=== PATIENT | female | born 1985 | race Caucasian/White ===

== ENCOUNTER 2018-02-19 08:38 | Outpatient (CLI) | payer BC ==
[2018-02-19 10:22] LABS: BASOPHILS % (AUTO) 0.4 %; EOSINOPHILS # (AUTO) 0.1 10^3/uL (0.0-0.7); EOSINOPHILS % (AUTO) 1.1 %; HGB - HEMOGLOBIN 14.1 g/dL (12.0-16.0); LYMPHOCYTES # (AUTO) 3.3 10^3/uL (1.5-3.5); LYMPHOCYTES % (AUTO) 33.8 %; MEAN CORPUSCULAR HEMOGLOBIN 31.3 pg (27.0-31.0); MEAN CORPUSCULAR HGB CONC 35.6 g/dL (32.0-36.0); MEAN CORPUSCULAR VOLUME 87.9 fL (81.0-99.0); MEAN PLATELET VOLUME 8.4 fL (7.9-10.8); MONOCYTES # (AUTO) 0.6 10^3/uL (0.0-1.0); MONOCYTES % (AUTO) 6.1 %; NEUTROPHILS # (AUTO) 5.7 10^3/uL (1.5-6.6); NEUTROPHILS % (AUTO) 58.6 %; PLT - PLATELET COUNT 226 10^3/uL (130-450); RED CELL DISTRIBUTION WIDTH 12.5 % (12.0-15.0); WHITE BLOOD COUNT 9.8 x10^3/uL (4.8-10.8)
[2018-02-19 10:53] LABS: HB2 TOTAL 15.2 g/dL; HEMOGLOBIN A1C 0.41 g/dL; HEMOGLOBIN A1C % 4.6 % (4.6-6.2)
[2018-02-19 10:59] LABS: % IRON SATURATION 22 % (20-50); ALBUMIN 3.9 g/dL (3.2-5.5); ALBUMIN/GLOBULIN RATIO 1.3 (1.0-2.2); ALKALINE PHOSPHATASE 63 IU/L (42-121); ALT ALANINE AMINOTRANSFERASE 34 IU/L (10-60); AST ASPARTATE AMINOTRANSFERASE 24 IU/L (10-42); BILIRUBIN,TOTAL 0.7 mg/dL (0.2-1.0); BUN - BLOOD UREA NITROGEN 8 mg/dL (6-20); CALCIUM 8.6 mg/dL (8.5-10.3); CARBON DIOXIDE - CO2 23 mmol/L (21-32); CHLORIDE 104 mmol/L (101-111); CHOL/HDL RATIO 3.6 (<4.4); CHOLESTEROL 118 mg/dL; CREATININE 0.7 mg/dL (0.4-1.0); GFR - MDRD 97 (>89); GLUCOSE 102 mg/dL (70-100); HDL CHOLESTEROL 33 mg/dL; IRON 68 ug/dL (28-170); LDL CHOLESTEROL,CALCULATED 59 mg/dL; LDL/HDL RATIO 1.8 (<4.4); SODIUM 135 mmol/L (135-145); TOTAL IRON BINDING CAPACITY 304 ug/dL (250-450); TOTAL PROTEIN 6.8 g/dL (6.7-8.2); TRANSFERRIN 217 mg/dL (192-382); VLDL CHOLESTEROL 26 mg/dL
[2018-02-19 11:05] LABS: THYROID STIMULATING HORMONE 2.01 uIU/mL (0.34-5.60)
[2018-02-19 11:06] LABS: FREE T4 (FREE THYROXINE) 0.84 ng/dL (0.58-1.64)
[2018-02-19 11:11] LABS: CRP - C-REACTIVE PROTEIN < 1.0 mg/dL (0-1.0)
[2018-02-26 21:05] LABS: ENDOMYSIAL ANTIBODY SCR IGA NEGATIVE (NEGATIVE); GLIADIN (DEAMIDATED) AB IGA 3 U (<20); GLIADIN (DEAMIDATED) AB IGG 9 U (<20); IMMUNOGLOBULIN A 100 mg/dL (81-463); TISSUE TRANSGLUTAMINASE IGA <1 U/mL; TISSUE TRANSGLUTAMINASE IGG 2 U/mL
== END 2018-02-19 08:39 | disposition home or self-care (01) ==
LOC: LAB.F 08:38
PROVIDERS: ATTEND Internal Medicine
DX: R53.83 Other fatigue (principal); R10.9 Unspecified abdominal pain; R19.7 Diarrhea, unspecified; R63.5 Abnormal weight gain
CPT/HCPCS: 36415; 80053; 80061; 81599; 82784; 83036; 83516; 83540; 83721; 84439; 84443; 84466; 84481; 85025; 86140; 86256; 86376

== ENCOUNTER 2018-03-24 17:51 | Outpatient (CLI) | payer BC ==
--- NOTE | 2018-03-25 09:49 | Ultrasound Report ---
Reason: ENCTR FOR TEST, RESULT POSITIVE Procedure Date: 03/24/2018 Accession Number: [id number] / [id number] Procedure: US - OB First Trimester CPT Code: FULL RESULT: EXAM: FIRST TRIMESTER OBSTETRIC ULTRASOUND (Less than 11 weeks) EXAM DATE: 03/24/2018 06:52 PM. CLINICAL HISTORY: 32-year-old female with positive test. LMP: 01/06/2018. COMPARISONS: None. TECHNIQUE: Transabdominal and transvaginal ultrasound examination with static image documentation. CLINICAL DATES: EGA 11 weeks 0 days with PARISH 10/13/2018 based on LMP. ASSESSMENT: Gestational Sac: Single intrauterine. Mean gestational sac diameter: 39 mm = 9 weeks 4 days. Embryo: CRL (crown-rump length) 42.6 mm = 11 weeks 1 day. Cardiac activity: 163 beats per minute. Yolk sac: 3.9 mm. Amniotic fluid: Unremarkable for stage of . Early placenta: Not visible at this gestational age. Other: No perigestational fluid collection demonstrated. MATERNAL STRUCTURES: Uterus: Anteverted/Retroverted. Unremarkable. Cervix: Closed. Right Ovary/Adnexa: Not visualized. Likely obscured by the enlarged uterus. No adnexal mass, cyst or free fluid.. Left Ovary/Adnexa: The ovary measures 3.1 x 1.8 x 3.6 cm, volume 10.5 cc. Unremarkable. Benign-appearing corpus luteum 1.9 cm. Free Fluid: None. Other: None. IMPRESSION: Single living intrauterine fetus in well-formed gestational sac 11 weeks 1 day by crown-rump length, within 1 day of clinical dates by LMP of 11 weeks 0 days. Right ovary not identified, likely obscured by bowel gas. No adnexal mass, cyst or free fluid. Normal-appearing left ovary. Complete anatomic survey recommended at 20 weeks. RADIA
== END 2018-03-24 17:52 | disposition home or self-care (01) ==
LOC: DI 17:51
PROVIDERS: ATTEND Obstetrics & Gynecology
DX: Z32.01 Encounter for pregnancy test, result positive (principal)
CPT/HCPCS: 76801; 76817

== ENCOUNTER 2018-03-25 14:10 | Outpatient (CLI) | payer BC ==
[2018-03-25 15:16] LABS: MUDS CUTOFF CONCENTRATIONS CUTOFF CONC BELOW:
[2018-03-25 15:31] LABS: AMPHETAMINE SCREEN,URINE NEGATIVE (NEGATIVE); BENZODIAZEPINES SCREEN, URINE NEGATIVE (NEGATIVE); COCAINE SCREEN URINE NEGATIVE (NEGATIVE); METHADONE SCREEN, URINE NEGATIVE (NEGATIVE); METHAMPHETAMINES SCREEN, URINE NEGATIVE (NEGATIVE); OPIATE SCREEN, URINE NEGATIVE (NEGATIVE); OXYCODONE SCREEN, URINE NEGATIVE (NEGATIVE); PROPOXYPHENE SCREEN, URINE NEGATIVE (NEGATIVE); TRICYCLIC ANTIDEPRESSANT,URINE NEGATIVE (NEGATIVE)
== END 2018-03-25 14:11 | disposition home or self-care (01) ==
LOC: LAB.R 14:10
PROVIDERS: ATTEND Registered Nurse
DX: Z36.9 Encounter for antenatal screening, unspecified (principal)
CPT/HCPCS: 80306

== ENCOUNTER 2018-05-21 08:55 | Outpatient (CLI) | payer BC | END 2018-05-21 08:56 | disposition home or self-care (01) | LOC: LAB.F 08:55 | PROVIDERS: ATTEND Registered Nurse | DX: Z36.9 Encounter for antenatal screening, unspecified (principal) ==

== ENCOUNTER 2018-05-22 08:55 | Outpatient (CLI) | payer BC ==
[2018-05-22 09:29] LABS: BASOPHILS % (AUTO) 0.2 %; EOSINOPHILS # (AUTO) 0.1 10^3/uL (0.0-0.7); EOSINOPHILS % (AUTO) 0.9 %; HGB - HEMOGLOBIN 12.8 g/dL (12.0-16.0); LYMPHOCYTES # (AUTO) 3.3 10^3/uL (1.5-3.5); LYMPHOCYTES % (AUTO) 20.5 %; MEAN CORPUSCULAR HEMOGLOBIN 31.1 pg (27.0-31.0); MEAN CORPUSCULAR HGB CONC 35.4 g/dL (32.0-36.0); MEAN CORPUSCULAR VOLUME 87.8 fL (81.0-99.0); MONOCYTES # (AUTO) 0.9 10^3/uL (0.0-1.0); MONOCYTES % (AUTO) 5.7 %; NEUTROPHILS # (AUTO) 11.5 10^3/uL (1.5-6.6); NEUTROPHILS % (AUTO) 72.7 %; PLT - PLATELET COUNT 194 10^3/uL (130-450); RED BLOOD COUNT 4.13 10^6/uL (4.20-5.40); RED CELL DISTRIBUTION WIDTH 12.8 % (12.0-15.0); WHITE BLOOD COUNT 15.9 x10^3/uL (4.8-10.8)
[2018-05-22 09:46] LABS: BILIRUBIN,URINE NEGATIVE (NEGATIVE); GLUCOSE, URINE (UA) 500 mg/dL (NEGATIVE); KETONES,URINE (UA) 15 mg/dL (NEGATIVE); LEUKOCYTE ESTERASE, URINE NEGATIVE (NEGATIVE); NITRITE,URINE NEGATIVE (NEGATIVE); OCCULT BLOOD,URINE NEGATIVE (NEGATIVE); PH,URINE 5.5 PH (5.0-7.5); PROTEIN,URINE NEGATIVE (NEGATIVE); UROBILINOGEN,URINE 0.2 (NORMAL) E.U./dL (NORMAL)
[2018-05-22 09:53] LABS: CLARITY,URINE CLEAR (CLEAR)
[2018-05-22 09:56] LABS: BACTERIA,URINE Few /HPF (None Seen); RBC,URINE 0-5 /HPF (0-5); SQUAMOUS EPITHELIAL CELL,UR FEW Squamous (<= Few)
[2018-05-22 10:31] LABS: HB2 TOTAL 13.5 g/dL; HEMOGLOBIN A1C 0.4 g/dL; HEMOGLOBIN A1C % 4.9 % (4.6-6.2)
[2018-05-23 10:56] LABS: HEPATITIS B SURFACE ANTIGEN NON-REACTIVE (NON-REACTIVE); HEPATITIS C ANTIBODY NON-REACTIVE (NON-REACTIVE)
[2018-05-25 09:11] LABS: HIV AG/AB 4TH GEN NON-REACTIVE (NON-REACTIVE)
== END 2018-05-22 08:56 | disposition home or self-care (01) ==
LOC: LAB 08:55
PROVIDERS: ATTEND Registered Nurse
DX: Z36.9 Encounter for antenatal screening, unspecified (principal)
CPT/HCPCS: 36415; 81001; 81599; 82950; 83036; 85025; 86592; 86762; 86803; 86850; 86900; 86901; 87340; 87389

== ENCOUNTER 2018-06-11 12:53 | Outpatient (CLI) | payer BC ==
--- NOTE | 2018-06-11 16:48 | Ultrasound Report ---
Reason: Procedure Date: 06/11/2018 Accession Number: [id number] / [id number] Procedure: US - OB Detailed Eval CPT Code: FULL RESULT: EXAM: COMPLETE OBSTETRICAL ULTRASOUND EXAM DATE: 06/11/2018 03:18 PM. CLINICAL HISTORY: anatomic survey. COMPARISON: OB FIRST TRIMESTER 03/24/2018 6:10 PM. TECHNIQUE: Real-time sonographic evaluation of the fetus performed by the pie filling mixer. Multiple telephone sales representative static images were saved for review. DATING: Established EGA 22 weeks 0 days with PARISH 10/14/2018 based on physician stated. EGA 22 weeks 3 days with PARISH 10/12/2018 based on prior ultrasound. EGA 22 weeks 4 days with PARISH 10/11/2018 based on the current ultrasound. GENERAL EVALUATION Thomas . Cardiac activity: 152 bpm. movement: Visualized. Presentation: Cephalic. Placenta: Posterior position. No evidence for previa. Umbilical cord: 3 vessel cord. Central placental cord origin. Amniotic fluid: Subjectively normal with a four-quadrant LARS of 16.6 cm.. MVP 4.7 cm. BIOMETRY Bi-Parietal Diameter (BPD): 5.62 cm, 23 weeks 1 day Head Circumference (HC): 20.6 cm, 22 weeks 4 days Abdominal Circumference (AC): 17.9 cm, 22 weeks 5 days Femur Length (FL): 3.85 cm, 22 weeks 2 days Estimated Weight: 519 grams, appropriate for his estimated gestational age. ANATOMY The intracranial structures, profile, face/nose/lips, spine, 4 chamber heart and outflow tracts, stomach, abdominal wall and cord insertion, diaphragm, kidneys, bladder, and extremities were visualized and demonstrate no abnormality. MATERNAL STRUCTURES Uterus: Unremarkable. Cervix: Long and closed. Transabdominal length 4.5 cm. Right ovary/adnexa: Unremarkable. Left ovary/adnexa: Unremarkable. Free fluid: None. IMPRESSION: 1. Thomas live intrauterine with gestational age 22 weeks 0 days based on physician stated. 2. Estimated weight is within expected limits for assigned dating. 3. Normal anatomic survey. No anatomic abnormalities are detected at this time. RADIA
== END 2018-06-11 12:54 | disposition home or self-care (01) ==
LOC: DI 12:53
PROVIDERS: ATTEND Registered Nurse
DX: Z33.1 Pregnant state, incidental (principal)
CPT/HCPCS: 76811

== ENCOUNTER 2018-07-20 08:11 | Outpatient (CLI) | payer BC ==
[2018-07-20 08:47] LABS: HGB - HEMOGLOBIN 12.6 g/dL (12.0-16.0); MEAN CORPUSCULAR HEMOGLOBIN 30.5 pg (27.0-31.0); MEAN CORPUSCULAR VOLUME 87.1 fL (81.0-99.0); MEAN PLATELET VOLUME 8.1 fL (7.9-10.8); RED BLOOD COUNT 4.13 10^6/uL (4.20-5.40); RED CELL DISTRIBUTION WIDTH 13.6 % (12.0-15.0); WHITE BLOOD COUNT 14.6 x10^3/uL (4.8-10.8)
== END 2018-07-20 08:12 | disposition home or self-care (01) ==
LOC: LAB 08:11
PROVIDERS: ATTEND Nurse Practitioner Obstetrics & Gynecology
DX: Z36.89 Encounter for other specified antenatal screening (principal)
CPT/HCPCS: 36415; 82951; 82952; 85027; 86850

== ENCOUNTER 2018-09-25 14:28 | Outpatient (CLI) | payer BC | END 2018-09-25 23:59 | disposition home or self-care (01) | LOC: LAB.R 14:28 | PROVIDERS: ATTEND Nurse Practitioner Obstetrics & Gynecology | DX: Z36.89 Encounter for other specified antenatal screening (principal) | CPT/HCPCS: 87491; 87591; 87797 ==

== ENCOUNTER 2018-10-13 11:01 | Inpatient (IN) | payer BC ==
[2018-10-13] MEDS ORDERED: SODIUM CHLORIDE FLUSH 0.9% 10 ML SYRINGE IVP PRN (11:14)
[2018-10-13] MEDS ORDERED: ONDANSETRON 4 MG/2 ML VIAL IVP PRN (11:14)
[2018-10-13] MEDS ORDERED: SODIUM CHLORIDE FLUSH 0.9% 10 ML SYRINGE ONE (11:20)
[2018-10-13] MEDS ORDERED: LACTATED RINGERS 1,000 ML IV ONE (11:21)
[2018-10-13 11:50] LABS: BASOPHILS # (AUTO) 0.1 10^3/uL (0.0-0.1); BASOPHILS % (AUTO) 0.4 %; EOSINOPHILS % (AUTO) 0.2 %; HGB - HEMOGLOBIN 13.9 g/dL (12.0-16.0); LYMPHOCYTES # (AUTO) 3.3 10^3/uL (1.5-3.5); LYMPHOCYTES % (AUTO) 21.3 %; MEAN CORPUSCULAR HEMOGLOBIN 29.1 pg (27.0-31.0); MEAN CORPUSCULAR VOLUME 85.5 fL (81.0-99.0); MEAN PLATELET VOLUME 9.3 fL (7.9-10.8); MONOCYTES # (AUTO) 0.9 10^3/uL (0.0-1.0); MONOCYTES % (AUTO) 5.6 %; NEUTROPHILS # (AUTO) 11.1 10^3/uL (1.5-6.6); NEUTROPHILS % (AUTO) 72.5 %; PLT - PLATELET COUNT 186 10^3/uL (130-450); RED BLOOD COUNT 4.79 10^6/uL (4.20-5.40); RED CELL DISTRIBUTION WIDTH 13.7 % (12.0-15.0); WHITE BLOOD COUNT 15.4 x10^3/uL (4.8-10.8)
[2018-10-13] MEDS ORDERED: LACTATED RINGERS 1,000 ML IV SCH (12:00)
[2018-10-13] MEDS ORDERED: fentaNYL 100 MCG/2 ML VIAL ONE (12:00)
--- NOTE | 2018-10-13 12:05 | ANESTHESIA ---
Pre-Anesthesia VS, & Labs - Diagnosis Active labor - Procedure vaginal delivery Vital Signs: Temp Pulse Resp BP Pulse Ox 36.6 C 77 16 119/55 L 10/13/18 11:05 10/13/18 11:05 10/13/18 11:05 10/13/18 11:05 - NPO Other (labor) - Is Patient ?: Yes - Lab Results Current Lab Results: Laboratory Tests 10/13/18 11:30: WBC 15.4 H, RBC 4.79, Hgb 13.9, Hct 40.9, MCV 85.5, MCH 29.1, M CHC 34.0, RDW 13.7, Plt Count 186, MPV 9.3, Neut # (Auto) 11.1 H, Lymph # (Auto) 3.3, [place] # (Auto) 0.9, Eos # (Auto) 0.0, Baso # (Auto) 0.1, Absolute Nucleated RBC 0.01, Nucleated RBC % 0.0 Fish Bones: 10/13/18 11:30 Home Medications and Allergies Active Medications Lactated Ringer's (Lr) 1,000 mls @ 150 mls/hr IV .Q6H40M [facility] Last Admin: 10/13/18 11:32 Dose: 150 mls/hr Ondansetron HCl (Zofran Inj) 4 mg IVP Q4H PRN PRN Reason: Nausea / Vomiting Sodium Chloride (Normal Saline Flush 0.9%) 10 ml IVP PRN PRN PRN Reason: NEEDED PER PROVIDER ORDERS Sodium Chloride (Normal Saline Flush 0.9%) 10 ml IVP 0100,0900,1700 [facility] Zoloft daily Allergies/Adverse Reactions: Allergies Allergy/AdvReac Type Severity Reaction Status Date / Time azithromycin Allergy Rash Verified 10/13/18 12:04 Anes History & Medical History - Anesthetic History Anesthesia Complications: reports: No previous complications - Medical History Cardiovascular: reports: None Pulmonary: reports: None Gastrointestinal: reports: None Urinary: reports: None Neuro: reports: None Musculoskeletal: reports: None Endocrine/Autoimmune: reports: None Blood Disorders: reports: None Skin: reports: None Smoking Status: Never smoker Psychosocial: reports: Depression - Obstetrical History : 2 Parity: 1 Exam General: Alert, Oriented x3, Cooperative, No acute distress Dental: WNL Mouth Openin Fingerbreadth Neck Mobility: Normal Mallampati classification: II Thyromental Distance: 4-6 cm Plan Anesthesia Type: Spinal Consent for Procedure(s) Verified and Reviewed: Yes Code Status: Attempt Resuscitation ASA classification: 2-Mild systemic disease Is this case an emergency?: No
[2018-10-13] MEDS: OXYTOCIN/SODIUM CHLORIDE 500 ML IV PRN ×2 (12:15→13:16)
[2018-10-13] MEDS ORDERED: OXYTOCIN/SODIUM CHLORIDE 500 ML IV ONE (12:21)
[2018-10-13] MEDS ORDERED: WITCH HAZEL/GLYCERIN 1 EACH MED..PAD TOP PRN (12:37)
[2018-10-13] MEDS ORDERED: HYDROCORTISONE 1% CREAM 28 GM TUBE PR PRN (12:37)
--- NOTE | 2018-10-13 12:41 | HISTORY & PHYSICAL EXAMINATION ---
Admit History - Visit Reason Visit Reason: Contractions - : 2 Parity: 1 Premature: 0 Ectopic: 0 : 0 Care: positive: [facility] Risk/History: positive: None Complications This : positive: None Smoking Status: Never smoker - Mother's Labs Mother's Blood Type: positive: AB Mother's RH: positive: Positive GBS: positive: Group B Step Negative Rubella Status: positive: Immune Meds/Allgy - Allergies Allergies/Adverse Reactions: Allergies Allergy/AdvReac Type Severity Reaction Status Date / Time azithromycin Allergy Rash Verified 10/13/18 12:04 Review of Systems - Constitutional Constitutional: denies: Fatigue, Fever, Chills - Eyes Eyes: denies: Pain, Blurred vision, Spots in vision, Dipolpia - Cardiovascular Cariovascular: denies: Irregular heart rate, Palpitations, Chest pain, Edema - Respiratory Respiratory: denies: SOB at rest - Gastrointestinal Gastrointestinal: denies: Constipation, Diarrhea - Genitourinary Genitourinary: denies: Dysuria, Frequency, Urgency - Integumentary Integumentary: denies: Pruritis - Psychiatric Psychiatric: reports: Depression, Anxiety Physical - Abdominal Exam Vital Signs: Temp Pulse Resp BP Pulse Ox 36.6 C 77 16 119/55 L 10/13/18 11:05 10/13/18 11:05 10/13/18 11:05 10/13/18 11:05 Contraction Frequency (min/apart): 2-3 Contraction Intensity: positive: Strong Uterine Resting Tone: positive: Soft - Monitoring Heart Rate Baseline: 140 Strip Review: positive: Category II - Presentation Presentation: positive: Vertex - Vaginal Exam Membranes: positive: Membranes intact Plan for Labor - Plan For Labor I expect patient to be DC'd or transferred within 96 hours.: Yes Plan for Labor: HPI: This 33yo @ 39.6wks gestation by LMP presented to [facility] with c/o contractions. Upon arrival she was noted to be 5/6cm dilated, 80% effaced and 0 station. She reports contractions which have become persistently more uncomfortable with onset at 0200 this morning. She reports +FM. She denies VB or Lof. She has had a complicated only by anxiety and depression for which she was started on sertraline with improvement. She was admitted to [facility] for expectant management and requested an epidural for pain management. LMP 01/06/2018 First ultrasound @ 9w4d agrees with LMP dating PMHx: Anxiety/depression, obesity PSHx: Oral surgery Social Hx: Never smoker, no ETOH or IVDA Family Hx: Diabetes- mother, maternal grandfather Assessment: 33yo @ 39.6wks gestation by LMP Active labor GBS negative Anxiety Plan: Admit for expectant management Continuous monitoring Epidural per maternal request Anticipate spontaneous vaginal delivery
--- NOTE | 2018-10-13 12:55 | DELIVERY NOTE ---
Delivery Note - Labor Labor: positive: Spontaneous - Delivery Method Delivery Method: positive: Spontaneous vaginal delivery - Presentation Presentation: positive: ROP - right occiput posterior - Nuchal Cord Nuchal Cord: positive: None - Episiotomy Type Episiotomy Type: positive: None - Laceration Laceration: positive: 1st degree, Labial - Suture Suture Type: positive: Vicryl Suture Size: positive: 4-0 - Delivery Outcome Delivery Outcome: positive: Livebirth - [place] : positive: Placed in direct skin contact with mother, Stimulated, Warmed, [employer] used [place] sex: positive: Male - Cord Cord: positive: 3 vessels - Placenta Placenta: positive: Intact, Spontaneous - Estimated Blood Loss Estimated Blood Loss (in cc): 200 - Post Delivery Events Post Delivery Events: positive: No post delivery events - Delivery Comments (Free Text/Narrative) Delivery Comments (Free Text/Narrative): Labor: This 33yo @ 39.6wks gestation by L=9.4wk U/S presented at 1030 on 10/13/2018 in active labor. Cervix was 5-6/80/0, vertex with intact membranes. FHR pattern demonstrated baseline 140s in a category II pattern which was ove rall reassuring. Normal labor course. Spinal epidural placed per maternal request. Patient progressed to c/c/+2 at 1200 and actively began pushing at 1204. SROM occurred at 1205 and was noted to be a small amount of clear fluid. Normal SVB of a viable male infant in ROP position at 1211 on 10/13/2018. No nuchal cord. Apgars were 9/9 at 1 and 5 min respectively. The was placed on maternal abdomen, stimulated, dried, and placed skin to skin. The umbilical cord was allowed to stop pulsating at which time it was doubly clamped by CNM and cut by FOB. Cord blood was obtained. Placenta delivered spontaneously and intact at 1215. 3VC. Pitocin administered via IV for hemostasis. EBL 200mL. Uterine fundus firm and there is no excessive bleeding. The perineum, vagina, and cervix were inspected and found to have first degree right labial laceration which was repaired using 4-0 vicryl on an SH needle in standard fashion under sterile conditions. Vaginal examination following repair was done and tissues well approximated. Family bonding well. Both mother and baby were left in skin to skin position and in stable condition.
[2018-10-13] MEDS: ACETAMINOPHEN 500 MG TABLET PO SCH ×2 (15:44→23:44)
[2018-10-13] MEDS: IBUPROFEN 800 MG TABLET PO SCH ×2 (15:45→21:54)
[2018-10-13] MEDS ORDERED: SODIUM CHLORIDE FLUSH 0.9% 10 ML SYRINGE IVP SCH (17:00)
[2018-10-14] MEDS: IBUPROFEN 800 MG TABLET PO SCH ×2 (04:39→10:12)
--- NOTE | 2018-10-14 07:17 | Discharge Plan ---
Discharge Plan Disposition: 01 Home, Self Care Condition: Good Diet: Regular Activity Restrictions: No Restrictions Shower Restrictions: No Driving Restrictions: No Weight Bearing: Full Weight No Smoking: If you smoke, Please STOP! Call for help. Follow-up with: Ros Villar CNM, ARNP [Provider Admit Priv/Credential] -
--- NOTE | 2018-10-14 07:21 | PROVIDER PROGRESS NOTE ---
Subjective - Subjective Subjective: FINAL PROGRESS NOTE: S: Bonding well with baby. without difficulty. Pain well controlled with ibuprofen and Tylenol. Bleeding decreased and is light. She desires to go home today. O: Bp 119/64, T 36.6, HR 78, RR 16 Heart RRR w/o M/G/R, lungs CTAB, abdomen soft and nontender with fundus firm at U-1. Perineum intact and repair with mild edema. Bilateral LE's no edema. A: 33yo -->P2 PPD#1 s/p TSVD of viable male infant 1st degree left labial laceration - intact P: Reviewed self care and warning s/sx. Discharge home today on PPD#1. Advised continuation of PNV while Advised continued use of OTC ibuprofen and tylenol for pain management. Increase sertraline to 100mg PO daily for management of anxiety/depression. F/u in 1 week for support visit or sooner PRN. Pt verbalized understanding and agrees to above plan. She denies further questions or concerns today. Objective - Vital Signs/Intake & Output Vital Signs: Vital Signs x48h Temp Pulse Resp BP Pulse Ox 10/14/18 05:12 36.6 C 78 16 119/64 99 10/13/18 23:55 112/77 10/13/18 23:47 36.6 C 72 16 98/44 L 99 Intake & Output: Intake & Output 10/11/18 10/12/18 10/13/18 10/14/18 23:59 23:59 23:59 23:59 Intake Total 2215 Output Total 500 100 Balance 1715 -100 - Lab Results Fish Bones: 10/13/18 11:30 Other Labs: Lab Results x24hrs 10/13/18 Range/Units 11:30 WBC 15.4 H (4.8-10.8) x10^3/uL RBC 4.79 (4.20-5.40) 10^6/uL Hgb 13.9 (12.0-16.0) g/dL Hct 40.9 (37.0-47.0) % MCV 85.5 (81.0-99.0) fL MCH 29.1 (27.0-31.0) pg MCHC 34.0 (32.0-36.0) g/dL RDW 13.7 (12.0-15.0) % Plt Count 186 (130-450) 10^3/uL MPV 9.3 (7.9-10.8) fL Neut # (Auto) 11.1 H (1.5-6.6) 10^3/uL Lymph # (Auto) 3.3 (1.5-3.5) 10^3/uL [place] # (Auto) 0.9 (0.0-1.0) 10^3/uL Eos # (Auto) 0.0 (0.0-0.7) 10^3/uL Baso # (Auto) 0.1 (0.0-0.1) 10^3/uL Absolute Nucleated RBC 0.01 x10^3/uL Nucleated RBC % 0.0 /100WBC
[2018-10-14] MEDS: ACETAMINOPHEN 500 MG TABLET PO SCH (07:47)
--- NOTE | 2018-10-14 07:57 | DISCHARGE SUMMARY ---
Physician: MALENA Dickens DATE OF ADMISSION: 10/13/2018 DATE OF DISCHARGE: 10/14/2018 DIAGNOSES ON ADMISSION 1. A 33-year-old G2, P1-0-0-1 at 36.6 weeks gestation. 2. Active labor. 3. Group B streptococcus negative. DIAGNOSES ON DISCHARGE 1. A 33-year-old G2, P2-0-0-2, status post spontaneous vaginal delivery on 10/13/2018. 2. Normal recovery. BRIEF HISTORY: This is a patient of [facility] who presented on 10/13/2018 at 10:30 in active labor. Cervix was 5-6 cm dilated, 80% effaced, and 0 station in a vertex position with intact membranes. Spinal epidural placed per maternal request. The patient progressed to complete, and began actively pushing to spontaneously deliver a viable male infant in ROP position at 1211 hours on 10/13/2018. Apgars were 9 and 9 at one and five minutes, respectively. EBL 200 mL. The perineum, vagina and cervix were inspected and found to have a first-degree right labial laceration, which was repaired using 4-0 Vicryl on an SH needle in standard fashion under sterile conditions. She has had an unremarkable recovery period. She has been doing well in her course. She has been ambulating and tolerating a regular diet. She is urinating without difficulty, and her lochia is normal. Her pain is well controlled with oral medications. She will be discharged home today on day #1 with instructions to call if she has any worsening fevers, chills, abdominal pain, increased vaginal bleeding or foul smelling vaginal lochia. She intends to follow up with myself at [facility] in one week for support visit, and in three weeks for routine visit. TD: 10/14/2018 07:31 LUZ ELENA
[2018-10-14] MEDS ORDERED: SERTRALINE 50 MG TABLET PO SCH (09:00)
[2018-10-14 12:52] VITALS: BP 121/73
--- NOTE | 2018-10-14 15:47 | Labor Flowsheet ---
Labor Flowsheet Datetime Report Generated by CPN: 10/14/2018 15:47 Datetime: 10/14/2018 12:42 VITAL SIGNS NBP Sys/Kim/Mean (mmHg): 121 : 73 : 85 Pulse: 78 LaborFlag: Labor Datetime: 10/14/2018 07:45 SpO2 (%): 99 Datetime: 10/13/2018 14:19 Membranes Ruptured Date/Time: 10/13/2018 12:05 Membranes Rupture Method: Spontaneous Amniotic Fluid Color: Clear Datetime: 10/13/2018 12:11 Comments: pushing, indeterminate baseline Stage 2 Comments: Datetime: 10/13/2018 12:07 PATIENT CARE Oxygen Amount (LPM): 10 Oxygen Method: Non-Rebreather Datetime: 10/13/2018 12:04 UTERINE ACTIVITY Monitor Mode: Palpation Frequency (min): 1-2 Quality: Moderate Duration (sec): 60+ Resting Tone (Palpate): Relaxed ASSESSMENT A Monitor Mode: External US FHR Baseline Rate : 130 Variability: Moderate 6-25 bpm Accelerations: None Decelerations: None Category: Category I STAGE 2 Pushing: Coached on Pushing Pushing Position: Pushing with Contractions Pushing Progress: Pushing Effectively with Contractions COMMUNICATION Communication: RN at Bedside; Provider at Bedside Communication Comments: RN and provider remain at bedside for pushing Datetime: 10/13/2018 11:39 VAGINAL EXAM Dilatation (cm): 9.0 Station: 1 Vaginal Exam Comments: Vishnu Villar called, left message
== END 2018-10-14 15:15 | disposition home or self-care (01) | DRG 807 ==
LOC: WFO 11:01 → FBP 11:05 → WFO 11:13 → FBP 11:14
PROVIDERS: ADMIT Nurse Practitioner Obstetrics & Gynecology; ATTEND Nurse Practitioner Obstetrics & Gynecology
PROC: 10E0XZZ Delivery of Products of Conception, External Approach (ICD-10-PCS; principal; 2018-10-13)
PROC: 0HQ9XZZ Repair Perineum Skin, External Approach (ICD-10-PCS; 2018-10-13)
DX: O99.344 Other mental disorders complicating childbirth (principal); Z37.0 Single live birth; F41.9 Anxiety disorder, unspecified; F32.9 Major depressive disorder, single episode, unspecified; Z3A.39 39 weeks gestation of pregnancy; O99.214 Obesity complicating childbirth; E66.9 Obesity, unspecified; O70.0 First degree perineal laceration during delivery
CPT/HCPCS: 85025; 99213; A9270; J7120

== ENCOUNTER 2018-12-10 19:41 | Emergency (ER) | payer BC ==
[2018-12-10 20:36] LABS: BASOPHILS # (AUTO) 0.1 10^3/uL (0.0-0.1); BASOPHILS % (AUTO) 0.3 %; EOSINOPHILS # (AUTO) 0.1 10^3/uL (0.0-0.7); EOSINOPHILS % (AUTO) 0.6 %; HGB - HEMOGLOBIN 15.3 g/dL (12.0-16.0); LYMPHOCYTES # (AUTO) 2.8 10^3/uL (1.5-3.5); LYMPHOCYTES % (AUTO) 13.4 %; MEAN CORPUSCULAR HEMOGLOBIN 28.9 pg (27.0-31.0); MEAN CORPUSCULAR VOLUME 84.9 fL (81.0-99.0); MEAN PLATELET VOLUME 9.1 fL (7.9-10.8); MONOCYTES # (AUTO) 1.6 10^3/uL (0.0-1.0); MONOCYTES % (AUTO) 7.9 %; NEUTROPHILS # (AUTO) 15.9 10^3/uL (1.5-6.6); PLT - PLATELET COUNT 244 10^3/uL (130-450); RED CELL DISTRIBUTION WIDTH 12.1 % (12.0-15.0); WHITE BLOOD COUNT 20.7 x10^3/uL (4.8-10.8)
[2018-12-10 20:46] LABS: ALBUMIN 4.2 g/dL (3.2-5.5); ALBUMIN/GLOBULIN RATIO 1.1 (1.0-2.2); CALCIUM 9.3 mg/dL (8.5-10.3)
[2018-12-10] MEDS ORDERED: SODIUM CHLORIDE 0.9% 1,000 ML IV ONE ×2 (20:50)
[2018-12-10 20:52] LABS: GLUCOSE, URINE (UA) NEGATIVE (NEGATIVE); KETONES,URINE (UA) NEGATIVE (NEGATIVE); LEUKOCYTE ESTERASE, URINE NEGATIVE (NEGATIVE); NITRITE,URINE NEGATIVE (NEGATIVE); OCCULT BLOOD,URINE NEGATIVE (NEGATIVE); PH,URINE 5.5 PH (5.0-7.5); PROTEIN,URINE TRACE mg/dL (NEGATIVE); UROBILINOGEN,URINE 0.2 (NORMAL) E.U./dL (NORMAL)
[2018-12-10 20:55] LABS: CLARITY,URINE CLEAR (CLEAR)
[2018-12-10 20:56] LABS: BILIRUBIN,URINE NEGATIVE (NEGATIVE); HCG UR QUAL NEGATIVE; ICTOTEST,URINE NEGATIVE
[2018-12-10 21:13] LABS: PLATELET MORPHOLOGY NORMAL APPEARANCE (NORMAL); RBC MORPHOLOGY (MULTIPLE) NORMAL APPEARANCE (NORMAL)
[2018-12-10 21:15] LABS: DIFFERENTIAL COMMENT MANUAL=AUTO DIFF; PLATELET ESTIMATE, MANUAL NORMAL (130-450,000) (NORMAL)
--- NOTE | 2018-12-10 21:27 | ED Physician Documentation ---
History of Present Illness - Stated complaint Stated Complaint: NAUSEA/DIARRHEA - Chief complaint Chief Complaint: Abd Pain - History obtained from History obtained from: Patient - History of Present Illness Timing: How many days ago (3) Pain level max: 6 Pain level now: 5 - Additonal information Additional information: 33-year-old female presents to the emergency department with diarrhea for the past 3 days. Had been on amoxicillin for what appears to have been a viral upper respiratory disease. She has not had any blood. She has had nausea. Diarrhea was every 2-3 hours, though seems to be improving today. She feels weak and fatigued today. Also complaining of low back pain. Worse with movement and better with rest. No fevers. No recent travel. She is 2 months and is breast-feeding Review of Systems Ten Systems: 10 systems reviewed and negative Constitutional: denies: Fever, Chills Ears: denies: Ear pain Nose: denies: Rhinorrhea / runny nose, Congestion Cardiac: denies: Chest pain / pressure Respiratory: denies: Cough GI: denies: Hematemesis, Bloody / black stool Skin: denies: Rash Musculoskeletal: denies: Neck pain, Back pain PD PAST MEDICAL HISTORY - Past Medical History Cardiovascular: None Respiratory: None Neuro: None Endocrine/Autoimmune: None GI: None : None Musculoskeletal: None Derm: None Other Past Medical History: denies - Past Surgical History Past Surgical History: No - Present Medications Home Medications: Ambulatory Orders Medication Instructions Recorded Confirmed Vancomycin [Vancocin] 125 mg PO QID #40 capsule 12/10/18 - Allergies Allergies/Adverse Reactions: Allergies Allergy/AdvReac Type Severity Reaction Status Date / Time azithromycin Allergy Rash Verified 10/13/18 12:04 Penicillins AdvReac Rash Verified 12/10/18 19:53 - Social History Does the pt smoke?: No Smoking Status: Never smoker Does the pt drink ETOH?: Yes Does the pt have substance abuse?: No - Immunizations Immunizations are current?: Yes PD ED PE NORMAL - Vitals Vital signs reviewed: Yes - General General: Alert and oriented X 3, No acute distress - HEENT HEENT: Moist mucous membranes - Neck Neck: Supple, no meningeal sign - Cardiac Cardiac: RRR - Respiratory Respiratory: No respiratory distress, Clear bilaterally - Abdomen Abdomen: Soft, Non distended, Other (TTP L abdomen. no peritoneal signs.) - Back Back: No CVA TTP - Derm Derm: Warm and dry - Extremities Extremities: No edema - Neuro Neuro: Alert and oriented X 3, Normal speech Results - Vitals Vitals: Vital Signs - 24 hr 12/10/18 12/10/18 12/10/18 19:47 22:24 23:36 Temperature 36.4 C L 37.2 C Heart Rate 109 H 90 82 Respiratory 17 16 16 Rate Blood Pressure 92/74 114/71 117/52 L O2 Saturation 97 98 98 Oxygen O2 Source Room air - Labs Labs: Microbiology 12/10/18 18:45 Campylobacter Antigen Assay - Final Stool Laboratory Tests 12/10/18 12/10/18 12/10/18 18:45 20:20 20:20 WBC 20.7 H RBC 5.30 Hgb 15.3 Hct 45.0 MCV 84.9 MCH 28.9 MCHC 34.0 RDW 12.1 Plt Count 244 MPV 9.1 Neut # (Auto) 15.9 H Lymph # (Auto) 2.8 [place] # (Auto) 1.6 H Eos # (Auto) 0.1 Baso # (Auto) 0.1 Absolute Nucleated RBC 0.00 Band Neuts % (Manual) Not Reportable Abnorm Lymph % (Manual) Not Reportable Nucleated RBC % 0.0 Neutrophils # (Manual) Not Reportable Lymphocytes # (Manual) Not Reportable Monocytes # (Manual) Not Reportable Eosinophils # (Manual) Not Reportable Basophils # (Manual) Not Reportable Differential Comment MANUAL=AUTO DIFF Manual Slide Review Indicated Platelet Estimate NORMAL (130-450,000) Platelet Morphology NORMAL APPEARANCE RBC Morph Micro Appear NORMAL APPEARANCE Sodium 139 Potassium 3.7 Chloride 106 Carbon Dioxide 22 Anion Gap 11.0 BUN 18 Creatinine 1.0 Estimated GFR (MDRD) 64 L Glucose 112 H Calcium 9.3 Total Bilirubin 1.0 AST 47 H ALT 97 H Alkaline Phosphatase 96 Total Protein 8.0 Albumin 4.2 Globulin 3.8 Albumin/Globulin Ratio 1.1 Lipase 42 Urine Color Urine Clarity Urine pH Ur Specific [place] Urine Protein Urine Glucose (UA) Urine Ketones Urine Occult Blood Urine Nitrite Urine Bilirubin Urine Urobilinogen Ur Leukocyte Esterase Ur Microscopic Review Urine Culture Comments Urine HCG, Qual C. difficile Tox B Gene POSITIVE A* 12/10/18 12/10/18 20:45 20:45 WBC RBC Hgb Hct MCV MCH MCHC RDW Plt Count MPV Neut # (Auto) Lymph # (Auto) [place] # (Auto) Eos # (Auto) Baso # (Auto) Absolute Nucleated RBC Band Neuts % (Manual) Abnorm Lymph % (Manual) Nucleated RBC % Neutrophils # (Manual) Lymphocytes # (Manual) Monocytes # (Manual) Eosinophils # (Manual) Basophils # (Manual) Differential Comment Manual Slide Review Platelet Estimate Platelet Morphology RBC Morph Micro Appear Sodium Potassium Chloride Carbon Dioxide Anion Gap BUN Creatinine Estimated GFR (MDRD) Glucose Calcium Total Bilirubin AST ALT Alkaline Phosphatase Total Protein Albumin Globulin Albumin/Globulin Ratio Lipase Urine Color YELLOW Urine Clarity CLEAR Urine pH 5.5 Ur Specific [place] 1.025 1.025 Urine Protein TRACE Urine Glucose (UA) NEGATIVE Urine Ketones NEGATIVE Urine Occult Blood NEGATIVE Urine Nitrite NEGATIVE Urine Bilirubin NEGATIVE Urine Urobilinogen 0.2 (NORMAL) Ur Leukocyte Esterase NEGATIVE Ur Microscopic Review NOT INDICATED Urine Culture Comments NOT INDICATED Urine HCG, Qual NEGATIVE C. difficile Tox B Gene - Rads (name of study) CT abdomen pelvis Radiology: Prelim report reviewed, EMP read contemporaneously (No CT demonstr able abnormalities to explain clinical symptoms), See rad report PD MEDICAL DECISION MAKING - ED course Complexity details: reviewed results, re-evaluated patient, considered differential, d/w patient, d/w family ED course: 33-year-old female with C. difficile diarrhea. Will start on oral vancomycin. She is tolerating p.o. without difficulty. Pain controlled. She is currently breast-feeding. We will follow-up closely with her doctor for further care. Will return if she worsens. Patient is well-appearing, nontoxic. Afebrile. Patient counseled regarding signs and symptoms for which I believe and urgent re-evaluation would be necessary. Patient with good understanding of and agreement to plan and is comfortable going home at this time This document was made in part using voice recognition software. While efforts are made to proofread this document, sound alike and grammatical errors may occur. Departure - Departure Disposition: 01 Home, Self Care Clinical Impression: C. difficile diarrhea Condition: Good Health Concerns: diarrhea Plan of Treatment: oral vanco Care Goals: resolve c. diff Assessment: c. diff Instructions: Clostridium Difficile Infec Follow-Up: AMARIS DELGADO MD [Primary Care Provider] - Within 1 week Prescriptions: Vancomycin [Vancocin] 125 mg PO QID #40 capsule Comments: Take all antibiotics until gone. Return if you worsen. You should start to feel better within 3 to 5 days. If not you need to be reevaluated. This is highly contagious and is not killed by alcohol hand water filterer. You need to wash with soap and water. Discharge Date/Time: 12/10/18 23:37
[2018-12-10] MEDS ORDERED: IOVERSOL 320 100 ML VIAL IVP ONE ×2 (22:02→22:16)
--- NOTE | 2018-12-10 22:41 | CT Report ---
Reason: abd pain, diarrhea Procedure Date: 12/10/2018 Accession Number: [id number] / [id number] Procedure: CT - Abdomen/Pelvis W CPT Code: FULL RESULT: EXAM: CT ABDOMEN AND PELVIS EXAM DATE: 12/10/2018 10:14 PM. CLINICAL HISTORY: Abd pain, diarrhea. COMPARISONS: None. TECHNIQUE: Routine helical CT imaging was performed through the abdomen and pelvis. IV contrast: Yes. Enteric contrast: No. Reconstructions: Coronal and sagittal. In accordance with CT protocol optimization, one or more of the following dose reduction techniques were utilized for this exam: automated exposure control, adjustment of mA and/or KV based on patient size, or use of iterative reconstructive technique. FINDINGS: Lung Bases: Unremarkable. Liver: Normal. No masses. Gallbladder/Bile Ducts: Unremarkable. Spleen: Normal. Pancreas: Normal. Adrenal Glands: Normal. Kidneys: Normal. No masses or hydronephrosis. Peritoneal Cavity/Bowel: Normal. No free fluid, free air or adenopathy. No masses or acute inflammatory process. The appendix is well visualized and normal. There are no inflammatory changes of the colon. Pelvic Organs: Normal. The bladder and visualized pelvic organs are within normal limits. Vasculature: No aneurysms or other significant abnormality. Bones: No significant abnormality. Other: None. IMPRESSION: No CT demonstrable abnormalities to explain clinical symptoms. [facility]
[2018-12-10] MEDS ORDERED: VANCOMYCIN 125 MG CAPSULE PO STA (23:21)
[2018-12-10 23:38] VITALS: BP 117/52
== END 2018-12-10 23:37 | disposition home or self-care (01) ==
LOC: ED 19:41
DX: A04.72 Enterocolitis due to Clostridium difficile, not specified as recurrent (principal)
CPT/HCPCS: 36415; 74177; 80053; 81003; 81025; 83690; 85025; 87045; 87046; 87493; 96360; 99283; J8499; Q9967; 81001; 87086

== ENCOUNTER 2020-09-15 14:41 | Outpatient (CLI) | payer BC ==
[2020-09-15 15:34] VITALS: BP 122/78
--- NOTE | 2020-09-15 15:34 | SLEEP CARE CONSULTATION ---
Information from patient questionnaire entered by Gianna Kwan. I have reviewed and concur with the information entered by Gianna Kwan. This document represents the service I personally performed and the decisions made by me, Eliza Broderick ARNP. History of Present Illness Service Date and Time: 09/15/2020 1441 Reason for Visit: New patient Chief Complaint: reports: Unrefreshed sleep, Snoring, Excessive daytime sleepiness, Fatigue, Frequent awakenings at night Date of Onset: 5 years Usual bedtime: 11 PM Time it takes to fall asleep: 1 HR Snores at night: Yes Observed to quit breathing while asleep: No Sleeps alone due to snoring: No Number of times waking at night: 2-4 Reasons for waking at night: reports: Other (usually tossing and turning; hip pain). denies: Choking, Snoring, Gasping for air Toss, Turn, or Twitch while sleeping: Yes Recalls having dreams: No Usually gets out of bed at: 5:30 AM - 8 AM Feels refreshed in the morning: No Morning headache: No Sleepy or fatigued during the day: Yes Ever fallen asleep while driving: No (no drowsy driving but not driving much) Takes day naps: Yes (daily if possible) Dreams during day naps: Yes Prior sleep studies: No Additional HPI information: I had the pleasure of seeing LILIBETH CH today regarding the possibility of her having a sleep disorder. Her current complaints are unrefreshed sleep, snoring, excessive daytime sleepiness and fatigue. She has a checkup with her new doctor and discussed her daily fatigue and sleepiness. She has to take naps to get through the day. She has a lack of energy that makes doing daily tasks difficulty. She has a hard time focusing due to fatigue. She wakes up tired but is more productive in the morning. She is starting a new job where she has to get up for work at 6 AM and it is hard to get up and she needs a nap if she can get it to get through the day. She has 2-3 cups of coffee in the morning, sometimes another in the late afternoon. She snores according to but he is able to sleeping in same room. She feels she started snoring 5 years ago after gaining weight with . She has difficulty getting to sleep and has for many years. - Parasomnia Symptoms Ever been unable to move upon waking from sleep: No Walks in sleep: No Talks in sleep: No Ever acted out dreams in sleep: No Ever felt weak in the knees when startled or emotional: No Bothered by creepy, crawly, restless sensations in legs: Yes (body sensations/anxiety based ??sometimes) Problems with memory or concentration: Yes Subjective Initial Whitt[place] Sleepiness Scale score: 9 (in 2020) Past Medical History Past Medical History: reports: Anxiety, Depression, Mood disorder, Attention deficit. 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 Patient is and lives in [place]. Have you smoked in the past 12 months: No Alcohol use: Yes Alcohol amount and frequency: 2/wk Caffeine use: Yes Caffeine amount and frequency: 2-3 cups/day Family History Family Hx Sleep Apnea: Mother: Snoring, Father: Snoring, Grandparent: Sleep apnea - Treated Allergies and Home Medications Drug allergies reviewed: Yes (azithromycin, penicillins) Home medication list reviewed: Yes Allergy and home medication list: Sertraline 100 mg daily Review of Systems Weight gain over past 5 years: 30 Cardiovascular: denies: high blood pressure Gastrointestinal: reports: diarrhea. denies: heartburn Neurological: denies: headaches Psychiatric: reports: Attention Deficit Hyperactivity, anxiety, depression, mood disorder Ear/Nose/Throat: reports: wisdom teeth removed. denies: dry mouth/throat, tonsillectomy Endocrine: reports: sluggishness (tired), increased appetite, unexplained weakness Musculoskeletal: reports: joint pain, neck pain, back pain, muscle pain or cramping Physical Exam Blood Pressure: 122/78 Cuff size: long Heart Rate: 88 O2 Saturation: 98 Height: 5 ft 7 in Weight: 256 lb Body Mass Index: 40.1 BMI Classification: Morbidly Obese Neck circumference: 15.5 (inches) Nostrils: patent to airflow Mouth and throat: narrow oropharynx Soft palate: long Hard palate: normal Uvula visualization: 25% Mallampati Class III Tongue: normal in size Tonsils: 2+ Chin and jaw: normal size and position Neck: normal w/o lymphadenopathy or thyromegaly Heart: regular rate and rhythm Lungs: clear bilaterally Impression and Plan 1. Suspected Obstructive Sleep Apnea-Hypopnea Syndrome, as suggested by a history of loud and irregular snoring, frequent awakening during the night, unrefreshed sleep, cognitive impairment, and excessive daytime sleepiness. Narrow oropharynx and obesity are common predisposing factors for obstructive sleep apnea-hypopnea syndrome. I recommend proceeding to polysomnography to confirm the diagnosis and to assess severity. If the patient has significant sleep disordered breathing, a manual CPAP titration study will also be performed to find the optimal treatment pressure. I informed the patient of what the sleep studies involve and after some discussion, obtained agreement to proceed. The pathophysiology of obstructive sleep apnea-hypopnea syndrome was discussed with the patient and health risks of cardiovascular and cerebrovascular disease if not treated. Risks of drowsy driving discussed in detail and patient advised to avoid long distance driving and to picker/puller at the first sign of drowsiness. Patient agreed to plan. * Schedule polysomnography +- manual CPAP titration study and return in 1-2 weeks after the study to discuss result and initiate therapy. * Avoid long distance driving or driving when feeling sleepy. * Avoid alcohol, sedative and muscle relaxant around bedtime. * Attempt to lose weight. * Review instructions provided by trained office staff on how to prepare for the sleep study. * Return for follow-up after sleep study completed. Counseling Topics: Weight loss health impact Visit Type: In Office Time Spent with Patient (minutes): 32 Provider Statement: I spent 100% of the Face to Face Visit with the patient with greater than 50% spent counseling the patient and coordination of care.
== END 2020-09-15 14:42 | disposition home or self-care (01) ==
LOC: SC 14:41
PROVIDERS: ATTEND Nurse Practitioner Family
DX: G47.10 Hypersomnia, unspecified (principal); R06.83 Snoring; R41.89 Other symptoms and signs involving cognitive functions and awareness; G47.8 Other sleep disorders; E66.01 Morbid (severe) obesity due to excess calories; Z68.41 Body mass index [BMI] 40.0-44.9, adult
CPT/HCPCS: 99203; 99212

== ENCOUNTER 2021-09-03 08:00 | Outpatient (CLI) | payer BC | END 2021-09-03 23:59 | LOC: LAB.S 08:00 | PROVIDERS: ATTEND Physician Assistant | DX: R05.9 Cough, unspecified (principal); R50.9 Fever, unspecified; J01.00 Acute maxillary sinusitis, unspecified; J34.89 Other specified disorders of nose and nasal sinuses; Z20.822 Contact with and (suspected) exposure to COVID-19 ==

== ENCOUNTER 2021-10-13 08:00 | Outpatient (CLI) | payer BC, OTHER ==
--- NOTE | 2021-10-13 14:49 | XRAY Report ---
PROCEDURE: Abdomen 1 View X-Ray INDICATIONS: ABDOMINAL PAIN TECHNIQUE: One view of the abdomen acquired. COMPARISON: None FINDINGS: Surgical changes and devices: None. Bowel: Bowel gas pattern is normal. Soft tissues: No suspicious abdominal calcifications. Visualized solid organ contours appear normal in size. Bones: No suspicious bony lesions. IMPRESSION: Unremarkable single view supine abdominal radiograph Reviewed by: Chaitanya Liang MD on 10/13/2021 1:48 PM [facility] Approved by: Chaitanya Liang MD on 10/13/2021 1:48 PM [facility]DT Station ID: [id number]
[2021-10-13 15:34] LABS: BILIRUBIN,URINE NEGATIVE (NEGATIVE); GLUCOSE, URINE (UA) NEGATIVE (NEGATIVE); KETONES,URINE (UA) NEGATIVE (NEGATIVE); LEUKOCYTE ESTERASE, URINE NEGATIVE (NEGATIVE); NITRITE,URINE NEGATIVE (NEGATIVE); OCCULT BLOOD,URINE TRACE-INTA (NEGATIVE); PH,URINE 5.5 PH (5.0-7.5); PROTEIN,URINE TRACE mg/dL (NEGATIVE); UROBILINOGEN,URINE 0.2 (NORMAL) E.U./dL (NORMAL)
[2021-10-13 15:41] LABS: CLARITY,URINE CLOUDY (CLEAR)
[2021-10-13 15:54] LABS: AMORPHOUS SEDIMENT,UR Marked /LPF; BACTERIA,URINE None Seen /HPF (None Seen); RBC,URINE 0-5 /HPF (0-5); SQUAMOUS EPITHELIAL CELL,UR NONE SEEN (<= Few); WBC,URINE 0-3 /HPF (0-5)
[2021-10-13 17:49] LABS: BASOPHILS % (AUTO) 0.4 %; EOSINOPHILS # (AUTO) 0.1 10^3/uL (0.0-0.7); EOSINOPHILS % (AUTO) 1.3 %; HCT - HEMATOCRIT 41.5 % (37.0-47.0); HGB - HEMOGLOBIN 14.3 g/dL (12.0-16.0); LYMPHOCYTES # (AUTO) 3.6 10^3/uL (1.5-3.5); LYMPHOCYTES % (AUTO) 36.7 %; MEAN CORPUSCULAR HGB CONC 34.5 g/dL (32.0-36.0); MEAN PLATELET VOLUME 10.3 fL (7.9-10.8); MONOCYTES # (AUTO) 1.1 10^3/uL (0.0-1.0); NEUTROPHILS # (AUTO) 4.9 10^3/uL (1.5-6.6); NEUTROPHILS % (AUTO) 50.2 %; PLT - PLATELET COUNT 286 10^3/uL (130-450); RED BLOOD COUNT 4.77 10^6/uL (4.20-5.40); RED CELL DISTRIBUTION WIDTH 12.6 % (12.0-15.0); WHITE BLOOD COUNT 9.8 x10^3/uL (4.8-10.8)
[2021-10-13 18:24] LABS: ALBUMIN/GLOBULIN RATIO 1.2 (1.0-2.2); BILIRUBIN,TOTAL 0.7 mg/dL (0.2-1.0); CREATININE 0.8 mg/dL (0.4-1.0); CRP - C-REACTIVE PROTEIN 4.3 mg/dL (0-1.0); POTASSIUM 3.9 mmol/L (3.5-5.0); TOTAL PROTEIN 7.3 g/dL (6.7-8.2)
== END 2021-10-13 23:59 | disposition home or self-care (01) ==
LOC: DI.S 08:00
PROVIDERS: ATTEND Registered Nurse
DX: R10.84 Generalized abdominal pain (principal); R19.00 Intra-abdominal and pelvic swelling, mass and lump, unspecified site; R19.7 Diarrhea, unspecified
CPT/HCPCS: 36415; 80053; 81001; 81599; 83690; 85025; 86140

== ENCOUNTER 2023-02-10 07:44 | Outpatient (CLI) | payer OTHER ==
[2023-02-10 14:27] LABS: BASOPHILS # (AUTO) 0.1 10^3/uL (0.0-0.1); BASOPHILS % (AUTO) 0.6 %; EOSINOPHILS # (AUTO) 0.2 10^3/uL (0.0-0.7); EOSINOPHILS % (AUTO) 1.9 %; HGB - HEMOGLOBIN 14.2 g/dL (12.0-16.0); LYMPHOCYTES # (AUTO) 3.8 10^3/uL (1.5-3.5); LYMPHOCYTES % (AUTO) 45.9 %; MEAN CORPUSCULAR HEMOGLOBIN 29.6 pg (27.0-31.0); MEAN CORPUSCULAR VOLUME 89.8 fL (81.0-99.0); MEAN PLATELET VOLUME 10.2 fL (7.9-10.8); MONOCYTES # (AUTO) 0.6 10^3/uL (0.0-1.0); MONOCYTES % (AUTO) 7.2 %; NEUTROPHILS # (AUTO) 3.7 10^3/uL (1.5-6.6); PLT - PLATELET COUNT 292 10^3/uL (130-450); RED BLOOD COUNT 4.79 10^6/uL (4.20-5.40); RED CELL DISTRIBUTION WIDTH 12.1 % (12.0-15.0); WHITE BLOOD COUNT 8.4 x10^3/uL (4.8-10.8)
[2023-02-10 14:49] LABS: % IRON SATURATION 30 % (20-50); ALBUMIN 4.4 g/dL (3.2-5.5); ALBUMIN/GLOBULIN RATIO 1.5 (1.0-2.2); ALKALINE PHOSPHATASE 79 IU/L (42-121); ALT ALANINE AMINOTRANSFERASE 41 IU/L (10-60); AST ASPARTATE AMINOTRANSFERASE 23 IU/L (10-42); BILIRUBIN,TOTAL 0.6 mg/dL (0.2-1.0); BUN - BLOOD UREA NITROGEN 13 mg/dL (6-20); CALCIUM 9.4 mg/dL (8.5-10.3); CARBON DIOXIDE - CO2 29 mmol/L (21-32); CHLORIDE 102 mmol/L (101-111); CHOL/HDL RATIO 5.1 (<4.4); CHOLESTEROL 139 mg/dL; CREATININE 0.7 mg/dL (0.6-1.3); GFR - MDRD 94 (>89); GLUCOSE 106 mg/dL (74-104); HDL CHOLESTEROL 27 mg/dL; IRON 98 ug/dL (50-212); LDL CHOLESTEROL,CALCULATED 57 mg/dL; LDL/HDL RATIO 2.1 (<4.4); POTASSIUM 4.3 mmol/L (3.5-4.5); SODIUM 136 mmol/L (135-145); TOTAL IRON BINDING CAPACITY 329 ug/dL (250-450); TOTAL PROTEIN 7.3 g/dL (6.4-8.9); TRANSFERRIN 235 mg/dL (203-362); TRIGLYCERIDES 277 mg/dL (48-352); VLDL CHOLESTEROL 55 mg/dL
[2023-02-10 15:08] LABS: FERRITIN 92.2 ng/mL (11.0-306.8)
[2023-02-11 08:39] LABS: THYROID STIMULATING HORMONE 2.12 uIU/mL (0.34-5.60)
[2023-02-11 10:09] LABS: CALCIUM IONIZED SERUM 4.6 mg/dL (4.5-5.6)
== END 2023-02-10 07:45 | disposition home or self-care (01) ==
LOC: LAB.S 07:44
PROVIDERS: ATTEND Registered Nurse
DX: Z13.228 Encounter for screening for other metabolic disorders (principal); E66.01 Morbid (severe) obesity due to excess calories; Z13.220 Encounter for screening for lipoid disorders; Z13.29 Encounter for screening for other suspected endocrine disorder; Z13.0 Encounter for screening for diseases of the blood and blood-forming organs and certain disorders involving the immune mechanism
CPT/HCPCS: 36415; 80053; 80061; 82306; 82330; 82607; 82728; 82746; 83540; 83721; 83735; 84425; 84443; 84466; 85025

== ENCOUNTER 2024-03-01 07:19 | Outpatient (CLI) | payer OTHER ==
[2024-03-01 15:00] LABS: BASOPHILS # (AUTO) 0.1 10^3/uL (0.0-0.1); BASOPHILS % (AUTO) 0.6 %; EOSINOPHILS # (AUTO) 0.2 10^3/uL (0.0-0.7); EOSINOPHILS % (AUTO) 1.6 %; HCT - HEMATOCRIT 44.9 % (37.0-47.0); HGB - HEMOGLOBIN 14.8 g/dL (12.0-16.0); LYMPHOCYTES % (AUTO) 32.4 %; MEAN CORPUSCULAR HEMOGLOBIN 30.7 pg (27.0-31.0); MEAN CORPUSCULAR VOLUME 93.2 fL (81.0-99.0); MEAN PLATELET VOLUME 10.3 fL (7.9-10.8); MONOCYTES # (AUTO) 0.8 10^3/uL (0.0-1.0); MONOCYTES % (AUTO) 6.2 %; NEUTROPHILS # (AUTO) 7.2 10^3/uL (1.5-6.6); PLT - PLATELET COUNT 298 10^3/uL (130-450); RED BLOOD COUNT 4.82 10^6/uL (4.20-5.40); RED CELL DISTRIBUTION WIDTH 12.5 % (12.0-15.0); WHITE BLOOD COUNT 12.2 x10^3/uL (4.8-10.8)
[2024-03-01 16:07] LABS: % IRON SATURATION 31 % (20-50); ALBUMIN 4.3 g/dL (3.2-5.5); ALBUMIN/GLOBULIN RATIO 1.8 (1.0-2.2); ALKALINE PHOSPHATASE 74 IU/L (42-121); ALT ALANINE AMINOTRANSFERASE 17 IU/L (10-60); AST ASPARTATE AMINOTRANSFERASE 15 IU/L (10-42); BILIRUBIN,TOTAL 0.8 mg/dL (0.2-1.0); BUN - BLOOD UREA NITROGEN 15 mg/dL (6-20); CALCIUM 9.3 mg/dL (8.5-10.3); CARBON DIOXIDE - CO2 29 mmol/L (21-32); CHLORIDE 103 mmol/L (101-111); CHOL/HDL RATIO 2.6 (<4.4); CHOLESTEROL 133 mg/dL; CREATININE 0.8 mg/dL (0.6-1.3); GFR - MDRD 80 (>89); GLUCOSE 96 mg/dL (74-104); HDL CHOLESTEROL 51 mg/dL; IRON 105 ug/dL (50-212); LDL CHOLESTEROL,CALCULATED 57 mg/dL; LDL/HDL RATIO 1.1 (<4.4); SODIUM 137 mmol/L (135-145); TOTAL IRON BINDING CAPACITY 337 ug/dL (250-450); TOTAL PROTEIN 6.7 g/dL (6.4-8.9); TRANSFERRIN 241 mg/dL (203-362); TRIGLYCERIDES 127 mg/dL; VLDL CHOLESTEROL 25 mg/dL
[2024-03-01 16:17] LABS: THYROID STIMULATING HORMONE 2.21 uIU/mL (0.34-5.60)
[2024-03-01 19:19] LABS: ESTIMATED AVERAGE GLUCOSE 82 mg/dL (70-100); HEMOGLOBIN A1c% 4.5 % (4.27-6.07)
== END 2024-03-01 07:20 | disposition home or self-care (01) ==
LOC: LAB.S 07:19
PROVIDERS: ATTEND Surgery
DX: Z09 Encounter for follow-up examination after completed treatment for conditions other than malignant neoplasm (principal); Z90.3 Acquired absence of stomach [part of]
CPT/HCPCS: 36415; 80053; 80061; 81599; 82330; 82607; 82652; 82746; 83036; 83540; 83721; 84425; 84443; 84466; 85025